=== PATIENT | male | born 1985 | race Caucasian/White ===

== ENCOUNTER 2021-01-27 12:06 | Emergency (ER) | payer OTHER ==
--- NOTE | 2021-01-27 13:08 | EDM.PDOC ---
ED HPI GENERAL MEDICAL PROBLEM - General Chief Complaint: Respiratory Problem Stated Complaint: COVID + SOB Time Seen by Provider: 01/27/21 12:19 Source of Information: Reports: Patient History Limitations: Reports: No Limitations - History of Present Illness INITIAL COMMENTS - FREE TEXT/NARRATIVE: 36-year-old male presents the emergency department with worsening Covid symptoms . Patient states he developed Covid-like symptoms and was diagnosed with Covid 11 days ago. He states that he has progressively become more short of breath, fatigued, nauseated and continues to have diarrhea. Patient states he has lost 13 pounds in the last 11 days. States he has no appetite and has been unable to really eat anything. He denies any history of smoking. He does not take any pr escription medications. His primary care provider is Vy Phelps. He states that he feels like he is getting worse. Treatments [employer]: Reports: Other (see below) Other Treatments [employer]: no tylenol today - Related Data Allergies Allergy/AdvReac Type Severity Reaction Status Date / Time No Known Allergies Allergy Verified 01/27/21 12:24 Home Meds: Home Meds . [No Known Home Meds] 01/27/21 [History] Past Medical History - Infectious Disease History Infectious Disease History: Reports: Novel Coronavirus Social & Family History - Tobacco Use Tobacco Use Status *Q: Never Tobacco User ED ROS GENERAL - Review of Systems Review Of Systems: Comprehensive ROS is negative, except as noted in HPI. ED EXAM, GENERAL - Physical Exam Exam: See Below Exam Limited By: No Limitations General Appearance: Alert, WD/WN, Mild Distress Ears: Normal External Exam, Hearing Grossly Normal Nose: Normal Inspection Throat/Mouth: Normal Inspection, Normal Lips, Normal Voice, No Airway Compromise Head: Atraumatic Neck: Normal Inspection, Supple Respiratory/Chest: Chest Non-Tender, Respiratory Distress, Decreased Breath Sounds, Crackles (Fine crackles noted to the bilateral bases) Cardiovascular: Normal Peripheral Pulses, Regular Rate, Rhythm, No Edema, No Murmur Peripheral Pulses: 2+: Radial (L), Radial (R) GI/Abdominal: Normal Bowel Sounds, Soft, Non-Tender, No Distention (Male) Exam: Deferred Rectal (Males) Exam: Deferred Back Exam: Normal Inspection Extremities: Normal Inspection Neurological: Alert, Oriented, Normal Cognition Psychiatric: Normal Affect, Normal Mood Skin Exam: Warm, Dry, Intact, Normal Color, No Rash Lymphatic: No Adenopathy #1 Interpretation EKG Date: 01/27/21 Time: 12:49 Rhythm: NSR Rate (Beats/Min): 83 [place]: Normal P-Wave: Present QRS: Normal ST-T: Normal QT: Normal Comparison: NA - No Prior EKG EKG Interpretation Comments: Per Dr. Urrutia interpretation: sinus rhythm @ 83 Course - Vital Signs Text/Narrative:: As stated above, patient presents with worsening Covid symptoms. At the time of my exam he is hemodynamically stable however his O2 saturations are 90 to 92% on room air. He does appear to be dyspneic at rest. Lung sounds are diminished with fine crackles noted bilaterally in the bases. Will obtain lab studies to include a CBC, CMP, magnesium, C-reactive protein and a D-dimer. We will also obtain portable chest x-ray. Last Recorded V/S: Last Vital Signs Temp 96.9 F 01/27/21 12:24 Pulse 84 01/27/21 12:24 Resp 20 01/27/21 12:24 BP 133/86 01/27/21 12:24 Pulse Ox 90 L 01/27/21 12:24 - Orders/Labs/Meds Orders: Active Orders 24 hr Category Date Time Status Vital Signs [RC] Q15M Care 01/27/21 14:03 Active Vital Signs [RC] Q15M Care 01/27/21 14:07 Active EPINEPHrine [Adrenalin] Med 01/27/21 14:03 Active 0.3 mg IM ONETIME PRN EPINEPHrine [Adrenalin] Med 01/27/21 14:07 Active 0.3 mg IM ONETIME PRN Famotidine [Pepcid] Med 01/27/21 14:03 Active 20 mg IVPUSH ONETIME PRN Famotidine [Pepcid] Med 01/27/21 14:07 Active 20 mg IVPUSH ONETIME PRN Sodium Chloride 0.9% [Saline Flush] Med 01/27/21 14:15 Active 30 ml FLUSH ASDIRECTED Sodium Chloride 0.9% [Saline Flush] Med 01/27/21 14:15 Active 30 ml FLUSH ASDIRECTED diphenhydrAMINE [Benadryl] Med 01/27/21 14:03 Active 50 mg IVPUSH ONETIME PRN diphenhydrAMINE [Benadryl] Med 01/27/21 14:07 Active 50 mg IVPUSH ONETIME PRN methylPREDNISolone Sod Succ [Solu-MEDROL] Med 01/27/21 14:03 Active 125 mg IVPUSH ONETIME PRN methylPREDNISolone Sod Succ [Solu-MEDROL] Med 01/27/21 14:07 Active 125 mg IVPUSH ONETIME PRN Medication Orders Diphenhydramine HCl (Diphenhydramine 50 Mg/Ml Sdv) 50 mg IVPUSH ONETIME PRN PRN Reason: hypersensitivity reaction Diphenhydramine HCl (Diphenhydramine 50 Mg/Ml Sdv) 50 mg IVPUSH ONETIME PRN PRN Reason: hypersensitivity reaction Epinephrine HCl (Epinephrine 1 Mg/Ml Sdv) 0.3 mg IM ONETIME PRN PRN Reason: hypersensitivity reaction Epinephrine HCl (Epinephrine 1 Mg/Ml Sdv) 0.3 mg IM ONETIME PRN PRN Reason: hypersensitivity reaction Famotidine (Famotidine 20 Mg/2 Ml Sdv) 20 mg IVPUSH ONETIME PRN PRN Reason: hypersensitivity reaction Famotidine (Famotidine 20 Mg/2 Ml Sdv) 20 mg IVPUSH ONETIME PRN PRN Reason: hypersensitivity reaction Methylprednisolone Sodium Succinate (Methylprednisolone Sodium Succinate 125 Mg/2 Ml Sdv) 125 mg IVPUSH ONETIME PRN PRN Reason: hypersensitivity reaction Methylprednisolone Sodium Succinate (Methylprednisolone Sodium Succinate 125 Mg/2 Ml Sdv) 125 mg IVPUSH ONETIME PRN PRN Reason: hypersensitivity reaction Sodium Chloride (Sodium Chloride 0.9% 10 Ml Syringe) 30 ml FLUSH ASDIRECTED [facility] Sodium Chloride (Sodium Chloride 0.9% 10 Ml Syringe) 30 ml FLUSH ASDIRECTED [facility] Labs: Laboratory Tests 01/27/21 01/27/21 01/27/21 Range/Units 13:20 13:20 13:20 WBC 3.59 L (4.23-9.07) K/mm3 RBC 5.28 (4.63-6.08) M/mm3 Hgb 15.8 (13.7-17.5) gm/dl Hct 45.5 (40.1-51.0) % MCV 86.2 (79.0-92.2) fl MCH 29.9 (25.7-32.2) pg MCHC 34.7 (32.2-35.5) g/dl RDW Std Deviation 41.9 (35.1-43.9) fL Plt Count 199 (163-337) K/mm3 MPV 9.8 (9.4-12.3) fl Neut % (Auto) 55.9 (34.0-67.9) % Lymph % (Auto) 32.6 (21.8-53.1) % [place] % (Auto) 10.9 (5.3-12.2) % Eos % (Auto) 0 L (0.8-7.0) Baso % (Auto) 0.3 (0.1-1.2) % Neut # (Auto) 2.01 (1.78-5.38) K/mm3 Lymph # (Auto) 1.17 L (1.32-3.57) K/mm3 [place] # (Auto) 0.39 (0.30-0.82) K/mm3 Eos # (Auto) 0.00 L (0.04-0.54) K/mm3 Baso # (Auto) 0.01 (0.01-0.08) K/mm3 Manual Slide Review Abnormal smear D-Dimer, Quantitative 0.53 H (0.19-0.50) mg/L Sodium 130 L (136-145) mEq/L Potassium 3.4 L (3.5-5.1) mEq/L Chloride 94 L (98-107) mEq/L Carbon Dioxide 27 (21-32) mEq/L Anion Gap 12.4 (5-15) BUN 14 (7-18) mg/dL Creatinine 0.9 (0.7-1.3) mg/dL Est Cr Clr Drug Dosing 123.35 mL/min Estimated GFR (MDRD) > 60 (>60) mL/min BUN/Creatinine Ratio 15.6 (14-18) Glucose 106 H (70-99) mg/dL Calcium 8.2 L (8.5-10.1) mg/dL Magnesium 2.2 (1.8-2.4) mg/dL Total Bilirubin 0.6 (0.2-1.0) mg/dL AST 24 (15-37) U/L ALT 19 (16-63) U/L Alkaline Phosphatase 53 (46-116) U/L C-Reactive Protein 5.3 H* (<1.0) mg/dL Total Protein 7.5 (6.4-8.2) g/dl Albumin 3.4 (3.4-5.0) g/dl Globulin 4.1 gm/dL Albumin/Globulin Ratio 0.8 L (1-2) Meds: Medications Generic Name Dose Route Start Last Admin Trade Name Freq PRN Reason Stop Dose Admin Diphenhydramine HCl 50 mg 01/27/21 14:03 Diphenhydramine 50 Mg/Ml Sdv IVPUSH ONETIME PRN hypersensitivity reaction Diphenhydramine HCl 50 mg 01/27/21 14:07 Diphenhydramine 50 Mg/Ml Sdv IVPUSH ONETIME PRN hypersensitivity reaction Epinephrine HCl 0.3 mg 01/27/21 14:03 Epinephrine 1 Mg/Ml Sdv IM ONETIME PRN hypersensitivity reaction Epinephrine HCl 0.3 mg 01/27/21 14:07 Epinephrine 1 Mg/Ml Sdv IM ONETIME PRN hypersensitivity reaction Famotidine 20 mg 01/27/21 14:03 Famotidine 20 Mg/2 Ml Sdv IVPUSH ONETIME PRN hypersensitivity reaction Famotidine 20 mg 01/27/21 14:07 Famotidine 20 Mg/2 Ml Sdv IVPUSH ONETIME PRN hypersensitivity reaction Methylprednisolone Sodium Succinate 125 mg 01/27/21 14:03 Methylprednisolone Sodium Succinate 125 Mg/2 Ml Sdv IVPUSH ONETIME PRN hypersensitivity reaction Methylprednisolone Sodium Succinate 125 mg 01/27/21 14:07 Methylprednisolone Sodium Succinate 125 Mg/2 Ml Sdv IVPUSH ONETIME PRN hypersensitivity reaction Sodium Chloride 30 ml 01/27/21 14:15 Sodium Chloride 0.9% 10 Ml Syringe FLUSH ASDIRECTED ZEN Sodium Chloride 30 ml 01/27/21 14:15 Sodium Chloride 0.9% 10 Ml Syringe FLUSH ASDIRECTED ZEN Discontinued Medications Generic Name Dose Route Start Last Admin Trade Name Freq PRN Reason Stop Dose Admin CASIRIVIMAB/IMDEVIMAB 10 ml/ 110 mls @ 220 mls/hr 01/27/21 14:03 Sodium Chloride IV 01/27/21 14:32 ONETIME ONE SOTROVIMAB 500 mg/ Sodium 108 mls @ 216 mls/hr 01/27/21 14:07 01/27/21 15:31 Chloride IV 01/27/21 14:36 216 mls/hr ONETIME ONE Administration Potassium Chloride 40 meq 01/27/21 14:05 01/27/21 15:30 Potassium Chloride 20 Meq Tab.Er PO 01/27/21 14:06 40 meq ONETIME ONE Administration - Re-Assessments/Exams Free Text/Narrative Re-Assessment/Exam: 01/27/21 13:53 Portable view of the chest reveals scattered areas of infiltrate consistent with covid pneumonia. 01/27/21 14:04 Hematology reveals a WBC of 3.59, hemoglobin 13.8, hematocrit 45.5, platelet count 199 Coagulation reveals a D-dimer of 0.23 this is likely due to Covid and I do not suspect the patient has a PE Chemistry reveals a sodium of 130, potassium 3.4, chloride 94, anion gap 12.4, BUN 14, creatinine 0.9, glucose 106, C-reactive protein 5.3 I spoke with the patient to provide information about Regeneron treatment for himself. I offered her the patient and caregiver [employer] Regeneron fax sheet to read and review. I stated the drug has been approved by an emergency use authorization process and has not been fully FDA approved or reviewed. The patient meets the EUA requirements. I discussed there are other potential treatment options that are currently not FDA approved to treat COVID-19. Offered opportunity to ask questions and all questions were answered. The patient voiced understanding and agreed to proceed with the treatment for himself. 01/27/21 14:07 Nursing staff notifies me that we currently do not have any regeneron available in the ED. Pt will receive Sotrovimab. We will also supplement his potassium 01/27/21 16:48 Radiologist impression frontal view of the chest: Heart size and mediastinum are both within normal limits. Patchy increased density is seen on both sides of the chest. Bony structures show nothing acute. Findings are suspicious for mild to moderate bilateral COVID pneumonia. 01/27/21 16:49 Patient did receive monoclonal antibody infusion. He tolerated it well. He has been monitored for an hour post infusion. He will be discharged home. Departure - Departure Time of Disposition: 17:00 Disposition: Home, Self-Care 01 Condition: Good Clinical Impression: COVID-19 - Discharge Information Referrals: Vy Phelps PA-C [Primary Care Provider] - Forms: ED Department Discharge Additional Instructions: You were seen in the emergency department today with worsening Covid symptoms. Chest x-ray was completed which does show pneumonia bilaterally however this is viral in origin, as discussed, and cannot be treated with antibiotics. Lab studies were also completed which were essentially unremarkable. Qualify for monoclonal antibody treatment which she received today and tolerated well. You should likely start to feel better in the next couple of days. Continue to rest and drink plenty of fluids to stay hydrated. Eat frequent small meals. May take Tylenol or ibuprofen for discomfort or fever. Should your condition worsen or change, do not hesitate returning to the emergency department. Sepsis Event Note (ED) - Focused Exam Vital Signs: Vital Signs Temp Pulse Resp BP Pulse Ox 01/27/21 12:24 96.9 F 84 20 133/86 90 L - My Orders Last 24 Hours: My Active Orders 01/27/21 14:03 Vital Signs [RC] Q15M EPINEPHrine [Adrenalin] 0.3 mg IM ONETIME PRN Famotidine [Pepcid] 20 mg IVPUSH ONETIME PRN diphenhydrAMINE [Benadryl] 50 mg IVPUSH ONETIME PRN methylPREDNISolone Sod Succ [Solu-MEDROL] 125 mg IVPUSH ONETIME PRN 01/27/21 14:07 Vital Signs [RC] Q15M EPINEPHrine [Adrenalin] 0.3 mg IM ONETIME PRN Famotidine [Pepcid] 20 mg IVPUSH ONETIME PRN diphenhydrAMINE [Benadryl] 50 mg IVPUSH ONETIME PRN methylPREDNISolone Sod Succ [Solu-MEDROL] 125 mg IVPUSH ONETIME PRN 01/27/21 14:15 Sodium Chloride 0.9% [Saline Flush] 30 ml FLUSH ASDIRECTED Sodium Chloride 0.9% [Saline Flush] 30 ml FLUSH ASDIRECTED - Assessment/Plan Last 24 Hours: My Active Orders 01/27/21 14:03 Vital Signs [RC] Q15M EPINEPHrine [Adrenalin] 0.3 mg IM ONETIME PRN Famotidine [Pepcid] 20 mg IVPUSH ONETIME PRN diphenhydrAMINE [Benadryl] 50 mg IVPUSH ONETIME PRN methylPREDNISolone Sod Succ [Solu-MEDROL] 125 mg IVPUSH ONETIME PRN 01/27/21 14:07 Vital Signs [RC] Q15M EPINEPHrine [Adrenalin] 0.3 mg IM ONETIME PRN Famotidine [Pepcid] 20 mg IVPUSH ONETIME PRN diphenhydrAMINE [Benadryl] 50 mg IVPUSH ONETIME PRN methylPREDNISolone Sod Succ [Solu-MEDROL] 125 mg IVPUSH ONETIME PRN 01/27/21 14:15 Sodium Chloride 0.9% [Saline Flush] 30 ml FLUSH ASDIRECTED Sodium Chloride 0.9% [Saline Flush] 30 ml FLUSH ASDIRECTED
[2021-01-27] MEDS ORDERED: methylPREDNISolone Sodium Succinate 125 MG/2 ML SDV IVPUSH PRN ×2 (14:03→14:07)
[2021-01-27] MEDS ORDERED: Famotidine 20 MG/2 ML SDV IVPUSH PRN ×2 (14:03→14:07)
[2021-01-27] MEDS ORDERED: EPINEPHrine 1 MG/ML SDV IM PRN ×2 (14:03→14:07)
[2021-01-27] MEDS ORDERED: diphenhydrAMINE 50 MG/ML SDV IVPUSH PRN ×2 (14:03→14:07)
[2021-01-27] MEDS ORDERED: Potassium Chloride 20 MEQ Tab.ER PO ONE (14:05)
[2021-01-27] MEDS ORDERED: Sodium Chloride 0.9% 10 ML Syringe FLUSH SCH ×2 (14:15)
--- NOTE | 2021-01-27 16:42 | CR ---
Chest: Frontal view of the chest was obtained. Comparison: No prior chest imaging is available. Heart size and mediastinum are within normal limits. Patchy increased density is seen on both sides of the chest. Bony structures show nothing acute. Impression: 1. Findings are suspicious for mild to moderate bilateral COVID pneumonia. Diagnostic code #3
== END 2021-01-27 17:20 | disposition home or self-care (01) ==
LOC: JD.ED 12:06
DX: U07.1 COVID-19 (principal)
CPT/HCPCS: 36415; 71045; 80053; 83735; 85025; 85379; 86140; 93005; 99285; A9270; M0247; Q0247

== ENCOUNTER 2021-08-28 10:00 | Day surgery (SDC) | payer BC, OTHER ==
[~2021-08-28 10:00] MED LIST: Lactated Ringers 1,000 ML IV SCH; Lidocaine 1%/Sod Bicarbonate in NS 8.4% 1 ML Syringe IDERM PRN; Sodium Chloride 0.9% 10 ML Syringe FLUSH PRN; Sodium Chloride 0.9% 10 ML Syringe FLUSH SCH
[2021-08-28] MEDS ORDERED: Lidocaine 1% with EPINEPHrine 1:100,000 20 ML MDV ONE (10:37)
[2021-08-28] MEDS ORDERED: Bupivacaine 0.5%/EPINEPHrine 1:200,000 50 ML MDV ONE (10:37)
[2021-08-28] MEDS ORDERED: Lidocaine 1% 5 ML VIAL ONE (11:37)
[2021-08-28] MEDS ORDERED: Propofol 200 MG/20 ML SDV ONE ×2 (11:37→11:57)
[2021-08-28] MEDS ORDERED: Midazolam 1 MG/ML 2 ML SDV ONE (11:38)
[2021-08-28] MEDS ORDERED: fentaNYL 100 MCG/2 ML SDV ONE (11:44)
[2021-08-28] MEDS ORDERED: Dexamethasone 4 MG/ML 5 ML MDV ONE (12:10)
[2021-08-28] MEDS ORDERED: Ondansetron 4 MG/2 ML SDV ONE (12:10)
[2021-08-28] MEDS ORDERED: fentaNYL 100 MCG/2 ML SDV IVPUSH PRN (12:39)
[2021-08-28] MEDS ORDERED: Ondansetron 4 MG/2 ML SDV IVPUSH PRN (12:39)
[2021-08-28] MEDS ORDERED: HYDROmorphone 0.5 MG/0.5 ML Syringe IVPUSH PRN (12:39)
== END 2021-08-28 13:40 | disposition home or self-care (01) ==
LOC: JD.SDS 10:00
PROVIDERS: ATTEND Surgery
DX: D17.1 Benign lipomatous neoplasm of skin and subcutaneous tissue of trunk (principal); F17.210 Nicotine dependence, cigarettes, uncomplicated
CPT/HCPCS: 21552; J1100; J2250; J2405; J2704; J3010; J3490; J7120; 00400

== ENCOUNTER 2022-11-21 10:37 | Day surgery (SDC) | payer BC, OTHER ==
[~2022-11-21 10:37] MED LIST changes: +Lidocaine 1% 4 ML ONE; -Lidocaine 1%/Sod Bicarbonate in NS 8.4% 1 ML Syringe IDERM PRN; +Propofol 200 MG/20 ML SDV ONE
[2022-11-21] MEDS ORDERED: fentaNYL 100 MCG/2 ML SDV ONE (11:07)
[2022-11-21] MEDS ORDERED: Midazolam 1 MG/ML 2 ML SDV ONE (11:07)
[2022-11-21] MEDS ORDERED: Propofol 200 MG/20 ML SDV ONE (11:29)
== END 2022-11-21 12:18 | disposition home or self-care (01) ==
LOC: JD.SDS 10:37
PROVIDERS: ATTEND Specialist
DX: K29.50 Unspecified chronic gastritis without bleeding (principal); K21.00 Gastro-esophageal reflux disease with esophagitis, without bleeding; I10 Essential (primary) hypertension; Z79.899 Other long term (current) drug therapy; Z87.891 Personal history of nicotine dependence; Z86.16 Personal history of COVID-19; Z98.890 Other specified postprocedural states
CPT/HCPCS: 43239; J2250; J2704; J3010; J7120; 00731; J3490